=== PATIENT | female | born 1990 | race Caucasian/White ===

== ENCOUNTER 2022-11-15 13:00 | Emergency (ER) | payer OTHER, SELFPAY ==
--- NOTE | ~2022-11-15 | XR_ITS ---
EXAMINATION: XR chest 2V DATE: 11/15/2022 13:29 INDICATION: Chest pain TECHNIQUE: PA and lateral views of the chest are obtained. COMPARISON: None available FINDINGS: The lungs are free of acute opacities. No pleural effusion or pneumothorax. The cardiomedia stinal silhouette is normal. There is mild thoracic spondylosis. IMPRESSION: 1. No acute cardiopulmonary abnormality. Reviewed, dictated and finalized at location B.
--- NOTE | 2022-11-15 13:01 | ECG_ITS ---
Measurements Intervals [place] Rate: 107 P: 63 VA: 152 QRS: 87 QRSD: 81 T: 9 QT: 292 QTc: 390 Interpretive Statements SINUS TACHYCARDIA POSSIBLE RIGHT VENTRICULAR CONDUCTION DELAY [RSR (QR) IN V1/V2] NONSPECIFIC ST AND T-WAVE ABNORMALITY ABNORMAL RHYTHM ECG NO PREVIOUS ECG AVAILABLE FOR COMPARISON Electronically Signed On 11-16-2022 14:57:13 CDT by Alicia Boles M.D.
[2022-11-15 13:24] LABS: Basophils Percent Auto 0.4 % (0.2-1.2); Hematocrit 42.5 % (37.0-47.0); Hemoglobin 14.5 g/dL (12.0-15.0); Immature Granulocyte Absolute 0.04 K/mm3 (0.00-0.031); Immature Granulocyte Percent A 0.4 % (0-0.5); Lymphocytes Absolute Auto 0.85 K/mm3 (0.9-3.2); Lymphocytes Percent Auto 9.3 % (18.3-44.2); Mean Corpuscular HGB Conc 34.1 g/dl (32-36); Mean Platelet Volume 9.3 fl (7.4-10.4); Monocytes Absolute Auto 0.8 K/mm3 (0.1-0.6); Monocytes Percent Auto 8.5 % (2.6-8.5); Neutrophils Absolute Auto 7.4 K/mm3 (1.3-6.7); Neutrophils Percent Auto 81.4 % (45.5-73.1); Platelet Count Result 257 k/mm3 (150-375); Red Blood Count 4.83 M/mm3 (4.2-5.4); Red Cell Distribution Width 12.5 % (11.5-14.5); White Blood Count 9.1 K/mm3 (4.5-10.0)
[2022-11-15 13:30] LABS: Partial Thromboplastin Time 26.1 SECONDS (22.3-36.8)
[2022-11-15 13:32] LABS: INR 1.2; Prothrombin Time 14.3 Seconds (11.1-14.7)
[2022-11-15 13:37] LABS: Alanine Aminotransferase 19 U/L (6-35); Albumin Level 4.3 g/dL (3.5-5.1); Alkaline Phosphatase 59 U/L (38-126); Anion Gap 6 mmol/L (8-16); Aspartate Amino Transferase 23 U/L (14-36); Bilirubin,Total 0.7 mg/dL (0.2-1.3); Blood Urea Nitrogen 10 mg/dL (7-17); Calcium 8.5 mg/dL (8.4-10.2); Carbon Dioxide 26 mmol/L (22-30); Chloride 101 mmol/L (98-107); Estimated Glomerular Filt Rate > 60; Glucose 156 mg/dL (65-110); Lipase 38 U/L (23-300); Potassium 3.9 mmol/L (3.4-5.0); Sodium 133 mmol/L (137-145)
[2022-11-15 13:52] LABS: Troponin I < 0.012 ng/mL (0.000-0.034)
[2022-11-15 14:25] VITALS: BP 131/83; PULSE 110; RESP 18; TEMP 39.1; O2SAT 97
[2022-11-15 15:22] LABS: Influenza A QL RT-PCR Negative (Negative); Influenza B QL RT-PCR Negative (Negative); RSV RNA, RT-PCR Negative (Negative); SARS-CoV-2 RNA PCR Negative
--- NOTE | 2022-11-15 17:49 | PC.NURSE ---
Attempted to call pt twice for blood draw, pt did not respond to calling name 2x.
--- NOTE | 2022-11-15 21:22 | PC.NURSE ---
2100 - Pt called for room, no answer. 2120 - pt called for room no answer.
== END 2022-11-15 17:49 | disposition left against medical advice (07) ==
LOC: ANHED 21:31
PROVIDERS: Emergency Medicine
DX: R07.9 Chest pain, unspecified (principal); Z20.822 Contact with and (suspected) exposure to COVID-19
CPT/HCPCS: 36415; 71046; 80053; 83690; 84484; 85025; 85610; 85730; 87637; 93005; 99199

== ENCOUNTER 2023-04-25 17:55 | Emergency (ER) | payer OTHER, SELFPAY ==
[2023-04-25 18:08] VITALS: BP 118/89; PULSE 62; RESP 16; TEMP 37.3; O2SAT 99
--- NOTE | 2023-04-25 18:44 | ED.FEMALEGU ---
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 Patient finished antibiotics 5 days ago and believe she has a yeast infection. Denies any current vaginal discharge or urinary symptoms. She has tried no [id number] treatment prior to arrival. Related Data Home Medications Medication Instructions Recorded Confirmed acyclovir 400 mg tablet 400 mg PO DAILY 04/25/23 04/25/23 buspirone 5 mg tablet 5 mg PO DAILY 04/25/23 04/25/23 cyclobenzaprine 5 mg tablet 5 mg PO DAILY 04/25/23 04/25/23 losartan 50 mg tablet 50 mg PO DAILY 04/25/23 04/25/23 lurasidone 40 mg tablet 40 mg PO DAILY 04/25/23 04/25/23 pantoprazole 40 mg tablet,delayed 40 mg PO DAILY 04/25/23 04/25/23 release Allergies Allergy/AdvReac Type Severity Reaction Status Date / Time prednisone Allergy Rash Verified 04/25/23 18:13 Review of Systems Review of Systems: CONSTITUTIONAL: Denies body aches, fever, chills, or sweats. EYES: Denies visual changes, redness, or discharge. ENT: Denies rhinorrhea, congestion, sore throat, or otalgia. CARDIOVASCULAR: Denies chest pain, palpitations, or edema. RESPIRATORY: Denies cough or dyspnea. GASTROINTESTINAL: Denies abdominal pain, nausea, vomiting, or diarrhea. GENITOURINARY: Denies dysuria or hematuria.+ genital itching and swelling SKIN: Denies rash, itching, or wounds. MUSCULOSKELETAL: Denies back pain, joint pain, or myalgia. NEUROLOGIC: Denies headache, numbness, tingling, or weakness. PSYCH: Denies depression or anxiety. PMFSH Comments At time of signature, I have reviewed and agree with nursing past medical, surgical, social and family history unless otherwise noted. Please see nursing chart for further information. There is no relevant family history pertinent to the presenting complaint Exam Narrative: GENERAL: Well-appearing, well-nourished, and in no acute distress. HEAD: Normocephalic, atraumatic. EYES: EOMI. No redness or drainage. Conjunctivae normal. ENT: Mucous membranes pink and moist. NECK: Normal AROM. CHEST: No respiratory distress. : Exam deferred EXTREMITIES: Normal range of motion. No edema. SKIN: Warm, dry, no rash. Capillary refill normal. Normal skin turgor. NEURO: No focal deficits. Alert and oriented x3. Gait steady. PSYCH: Normal affect. No signs of depression or anxiety. Course Course Level of Care: Express Care Visit Vital Signs Vital signs: Vital Signs Temperature 99.1 F 04/25/23 18:08 Pulse Rate 62 04/25/23 18:08 Respiratory Rate 16 04/25/23 18:08 Blood Pressure 118/89 04/25/23 18:08 Pulse Oximetry 99 04/25/23 18:08 Oxygen Delivery Room Air 04/25/23 18:08 Temperature 99.1 F 04/25/23 18:08 Pulse Rate 62 04/25/23 18:08 Respiratory Rate 16 04/25/23 18:08 Blood Pressure 118/89 04/25/23 18:08 Pulse Oximetry 99 04/25/23 18:08 Oxygen Delivery Room Air 04/25/23 18:08 Reviewed. Pt has been instructed to follow up with her PCP regarding her elevated blood pressure today. MDM - Female Genitourinary MDM Narrative Medical decision making narrative: Will treat patient with fluconazole. Instructed patient to use topical Monistat if needed for couple of days. Anticipatory guidance given. Differential Diagnosis Differential diagnosis: Likely vaginitis and other (Vaginal yeast infection) Critical Care Time Critical Care Time Critical Care Time: No Discharge Plan Discharge Clinical Impression: Acute vulvovaginitis Patient Disposition: Home, Self-Care Condition: Stable Instructions: Yeast Infection (ED) Additional Instructions: Take the fluconazole as prescribed. You may also use top
== END 2023-04-25 18:52 | disposition home or self-care (01) ==
PROVIDERS: Emergency Provider Nurse Practitioner; PCP Internal Medicine Infectious Disease
DX: N76.0 Acute vaginitis (principal); I10 Essential (primary) hypertension; F41.9 Anxiety disorder, unspecified
CPT/HCPCS: 99213; G0463